=== PATIENT | male | born 1955 | race Caucasian/White ===

== ENCOUNTER → 2018-04-19 | Outpatient (CLI) | payer BC ==
--- NOTE | 2018-04-20 09:29 | RAD ---
EXAM DESCRIPTION: Foot,Left 2 Views CLINICAL HISTORY: 62 years Male, PAIN IN LEFT FOOT COMPARISON: None. FINDINGS: Two views of the left foot show cortical lucency involving the far medial aspect of the navicular, uncertain acuity. Findings could represent nondisplaced fracture. No additional fracture or malalignment is identified. Degenerative calcifications arise in the dorsal aspect of the midfoot. There is calcaneal enthesophyte formation at the plantar fascia and Achilles tendon insertions. No radiopaque foreign body or soft tissue gas. IMPRESSION: Nondisplaced fracture involving the far medial aspect of the navicular, uncertain acuity. If clinically suspicious of acute fracture at this location, MRI could be performed for better evaluation of acuity. Degenerative changes including calcaneal spurring. Electronically signed by: Billy Pizarro MD 04/20/2018 9:25 AM [facility]
== END ==
LOC: LAB.O 14:06
PROVIDERS: ATTEND Nurse Practitioner Family
DX: S92.255A Nondisplaced fracture of navicular [scaphoid] of left foot, initial encounter for closed fracture (principal); Z13.220 Encounter for screening for lipoid disorders

== ENCOUNTER → 2018-04-20 | Outpatient (CLI) | payer OTHER | LOC: LAB.O 14:53 | PROVIDERS: ATTEND Nurse Practitioner Family | DX: E83.51 Hypocalcemia (principal) ==

== ENCOUNTER → 2018-04-20 | Outpatient (CLI) | payer BC | LOC: LAB.O 14:44 | PROVIDERS: ATTEND Nurse Practitioner Family | DX: E83.51 Hypocalcemia (principal) ==

== ENCOUNTER → 2018-05-17 | Outpatient (CLI) | payer BC ==
--- NOTE | 2018-05-17 10:29 | RAD ---
Study: 3 Views of the Left Foot. Indication: S92.255D Comparison: April 19, 2018 Impression: Cornuate configuration navicular bone. As on the prior there is mild cortical undulation and amorphous subcortical lucency at its medial margin. This could relate to spurring or a nondisplaced fracture as reported on the prior. CT could better evaluate for acute fracture planes as clinically indicated. Small os peroneum bone. 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 No new fracture identified. Calcaneal spurring Achilles tendon insertion and plantar fascia origin. Electronically signed by: Dell Aggarwal MD 05/17/2018 10:26 AM CDT
== END ==
LOC: RAD 07:39
PROVIDERS: ATTEND Orthopaedic Surgery
DX: S92.255D Nondisplaced fracture of navicular [scaphoid] of left foot, subsequent encounter for fracture with routine healing (principal); M19.072 Primary osteoarthritis, left ankle and foot; M77.32 Calcaneal spur, left foot

== ENCOUNTER → 2018-06-04 | Outpatient (CLI) | payer OTHER | LOC: LAB.O 09:10 | PROVIDERS: ATTEND Nurse Practitioner Family | DX: E20.8 Other hypoparathyroidism (principal); E55.9 Vitamin D deficiency, unspecified ==

== ENCOUNTER → 2018-06-21 | Outpatient (CLI) | payer BC, OTHER ==
--- NOTE | 2018-06-21 10:28 | RAD ---
EXAM: Foot,Left 3 Views CLINICAL HISTORY: S92.255D COMPARISON STUDY: May 17, 2018 and April 17, 2018 TECHNICAL: AP, lateral and oblique x-rays of the left foot FINDINGS: Lucency in the medial aspect of the navicular cortex persist suggesting an ongoing healing fracture. No new fracture seen. There is no dislocation. The mild degenerative changes of the first metatarsal phalangeal joint and first interphalangeal joint are unchanged. Plantar heel spurs are unchanged. IMPRESSION: 1. The appearance of the left medial navicular suggest ongoing healing of a nondisplaced fracture. Electronically signed by: Riley Costello MD 06/21/2018 10:26 AM CDT
== END ==
LOC: RAD 07:43
PROVIDERS: ATTEND Orthopaedic Surgery
DX: S92.255D Nondisplaced fracture of navicular [scaphoid] of left foot, subsequent encounter for fracture with routine healing (principal)